=== PATIENT | male | born 1945 | race Caucasian/White ===

== ENCOUNTER 2017-03-01 09:58 | Emergency (ER) | payer MEDICARE, OTHER ==
[2017-03-01] MEDS ORDERED: Aspirin 81 MG Tab.Chew PO ONE (10:14)
[2017-03-01 10:19] VITALS: BP 158/89
--- NOTE | 2017-03-01 10:19 | EDM.PDOC ---
ED HPI GENERAL MEDICAL PROBLEM - General Stated Complaint: CHEST PAIN Time Seen by Provider: 03/01/17 10:13 Source of Information: Reports: Patient, RN Notes Reviewed History Limitations: Reports: No Limitations - History of Present Illness INITIAL COMMENTS - FREE TEXT/NARRATIVE: 71-year-old gentleman presents to emergency department day complaint of chest pain, he states the pain started last night he was not able to sleep through the night pain he describes a burning sensation in the center of his chest no radiations no shortness of breath no diaphoresis, he does have a known history of coronary artery disease with a bypass grafting in 2001 he states he has had several stress tests since then with no issues that he is aware. He states the burning does increase with exertion however at this time he is chest pain-free Mid-Sternal Chest Pain Score (Numeric/FACES): 1 - Related Data Allergies Allergy/AdvReac Type Severity Reaction Status Date / Time morphine Allergy Hypotension Verified 03/05/13 08:35 Home Meds: Home Meds Esomeprazole Magnesium [Nexium] 10 mg PO DAILY 03/05/13 [History] Lisinopril [Prinivil] 20 mg PO DAILY 03/05/13 [History] Rosuvastatin [Crestor] 20 mg PO BEDTIME 03/05/13 [History] Aspirin [Ecotrin] 81 mg PO DAILY 03/01/17 [History] Past Medical History Cardiovascular History: Reports: CAD, High Cholesterol, Hypertension Social & Family History - Tobacco Use Smoking Status *Q: Former Smoker - Alcohol Use Days Per Week of Alcohol Use: 1 Number of Drinks Per Day: 2 Total Drinks Per Week: 2 - Recreational Drug Use Recreational Drug Use: No ED ROS GENERAL - Review of Systems Review Of Systems: See Below Constitutional: Reports: No Symptoms HEENT: Reports: No Symptoms Respiratory: Reports: No Symptoms Cardiovascular: Reports: Chest Pain GI/Abdominal: Reports: No Symptoms : Reports: No Symptoms Musculoskeletal: Reports: No Symptoms Skin: Reports: No Symptoms Neurological: Reports: No Symptoms ED EXAM, GENERAL - Physical Exam Exam: See Below Free Text/Narrative:: General: Male, not in any distress, alert and oriented x3 HEENT: head is postsurgical resection left side of the face normocephalic, eyes pupils equal round reactive to light, sclera clear no conjunctivitis appreciated. Ears tympanic membranes clear and harris landmarks and light reflex are present bilaterally canals are clear. Nose no septal deviation, nares are clear, no blood present. Mouth mucosa is moist and pink no erythema or exudate noted in soft palate, tongue is midline uvula is midline, dentition is intact. Neck: Supple no thyromegaly no tracheal deviation. Nodes: Cervical nodes subclavicular nodes nontender no palpable lymphadenopathy noted. Lungs: clear to auscultation bilaterally with symmetrical respirations, no adventitious noise appreciated. CV: Regular rate and rhythm S1 and S2 appreciated no murmurs rubs or gallops noted. Chest point tenderness right side T4 Abdomen: Soft, nontender, no palpable masses or organomegaly appreciated, no distention no guarding bowel sounds are present, . Neuro: Cranial nerves II through XII grossly intact Skin: Warm and dry, intact Extremities: No lower extremity edema appreciated, Course - Vital Signs Last Recorded V/S: Last Vital Signs Temp 97.3 F 03/01/17 10:09 Pulse Resp 18 03/01/17 10:09 BP 158/89 H 03/01/17 10:09 Pulse Ox 95 03/01/17 10:09 - Orders/Labs/Meds Orders: Active Orders 24 hr Category Date Time Status Cardiac Monitoring [RC] .As Directed Care 03/01/17 10:14 Active EKG Documentation Completion [RC] ASDIRECTED Care 03/01/17 10:15 Active Chest 2V [CR] Stat Exams 03/01/17 10:15 Taken EKG 12 Lead [EK] Stat Ther 03/01/17 10:15 Ordered Labs: Laboratory Tests 03/01/17 03/01/17 03/01/17 Range/Units 10:24 10:24 10:24 WBC 6.6 (4.5-11.0) K/uL RBC 5.39 (4.30-5.90) M/uL Hgb 16.1 H (12.0-15.0) g/dL Hct 46.8 (40.0-54.0) % MCV 87 (80-98) fL MCH 30 (27-31) pg MCHC 34 (32-36) % Plt Count 173 (150-400) K/uL Neut % (Auto) 62 (36-66) % Lymph % (Auto) 27 (24-44) % Childress % (Auto) 9 H (2-6) % Eos % (Auto) 2 (2-4) % Baso % (Auto) 1 (0-1) % D-Dimer, Quantitative 309 (0.0-400.0) ng/mL Sodium 139 L (140-148) mmol/L Potassium 4.3 (3.6-5.2) mmol/L Chloride 104 (100-108) mmol/L Carbon Dioxide 30 (21-32) mmol/L Anion Gap 9.3 (5.0-14.0) mmol/L BUN 15 (7-18) mg/dL Creatinine 1.0 (0.8-1.3) mg/dL Est Cr Clr Drug Dosing 74.25 mL/min Estimated GFR (MDRD) > 60 (>60) Glucose 105 (74-106) mg/dL Calcium 9.8 (8.5-10.1) mg/dL Total Bilirubin 0.7 (0.2-1.0) mg/dL AST 32 (15-37) U/L ALT 55 (12-78) U/L Alkaline Phosphatase 77 (46-116) U/L Troponin I < 0.017 (0.000-0.056) ng/mL Total Protein 6.6 (6.4-8.2) g/dL Albumin 3.6 (3.4-5.0) g/dL Globulin 3.0 (2.3-3.5) g/dL Albumin/Globulin Ratio 1.2 (1.2-2.2) Lipase 111 (73-393) U/L Meds: Medications Discontinued Medications Generic Name Dose Route Start Last Admin Trade Name Freq PRN Reason Stop Dose Admin Aspirin 324 mg 03/01/17 10:14 03/01/17 10:38 Aspirin PO 03/01/17 10:15 324 mg ONETIME ONE Administration Departure - Departure Time of Disposition: 11:02 Disposition: Home, Self-Care 01 Condition: Good Clinical Impression: Chest wall pain Referrals: PCP,None [Primary Care Provider] - Additional Instructions: Please followup with your primary care provider in 3-5 days if not better, please call return to the emergency department with worsening of symptoms. - My Orders Last 24 Hours: My Active Orders 03/01/17 10:14 Cardiac Monitoring [RC] .As Directed 03/01/17 10:15 EKG Documentation Completion [RC] ASDIRECTED Chest 2V [CR] Stat EKG 12 Lead [EK] Stat - Assessment/Plan Last 24 Hours: My Active Orders 03/01/17 10:14 Cardiac Monitoring [RC] .As Directed 03/01/17 10:15 EKG Documentation Completion [RC] ASDIRECTED Chest 2V [CR] Stat EKG 12 Lead [EK] Stat Plan: Assessment Acuity = acute Site and laterality = chest wall pain Etiology = unclear etiology Manifestations = none Location of injury = Home Lab values = CBC, CMP, d-dimer within normal limits chest x-ray I did review films myself I cannot appreciate any acute process, the official read from radiology is pending. EKG demonstrates normal sinus rhythm there is no atrial enlargement there is no ventricular enlargement there is no axis deviation no T wave inversions I don't appreciate any ST depressions or elevations no Q waves noted good R wave progression Plan He was able to consistently reproduce his pain with relief by pressing on the junction of the sternum and rib at the T4 level, he is going to use an anti- inflammatory follow-up with his primary care in 3-5 days if not better Patient was in agreement with the plan all questions were answered, they were instructed to return to the emergency department or call for worsening symptoms. This note was dictated using [employer] voice recognition software please call with any questions.
--- NOTE | 2017-03-03 08:46 | CR ---
Chest 2V INDICATION: Chest Pain FINDINGS: Comparison 08/22/2006 and 04/02/2011. Sternotomy. Normal heart size. Postoperative changes ri ght thoracotomy with volume loss of the right hemithorax. Stable 8 mm nodular density left lung base likely represents a nipple shadow. No change since prior exam.
== END 2017-03-01 11:14 | disposition home or self-care (01) ==
LOC: JP.ED 09:58
DX: R07.89 Other chest pain (principal); E78.00 Pure hypercholesterolemia, unspecified; I10 Essential (primary) hypertension; Z88.5 Allergy status to narcotic agent; Z87.891 Personal history of nicotine dependence; Z79.82 Long term (current) use of aspirin
CPT/HCPCS: 36415; 71020; 80053; 83690; 84484; 85025; 85379; 93005; 93010; 99284; 99285; A9270